=== PATIENT | female | born 1960 | race Caucasian/White ===

== ENCOUNTER 2018-01-27 05:44 | Inpatient (IN) | payer BC ==
[~2018-01-27] VITALS: Ht 172.7 cm; Wt 76.9 kg
[2018-01-27 06:01] LABS: HCG,QUAL RESULT NEGATIVE (NEGATIVE)
[2018-01-27] MEDS ORDERED: SIMV10TA2 PO (06:47)
[2018-01-27] MEDS ORDERED: FERR140T PO (06:47)
[2018-01-27] MEDS ORDERED: CEFAZOLIN SOD 1 GM/ ISO 50 ML PREMIX IV ONE (07:00)
[2018-01-27] MEDS ORDERED: DIPHENHYDRAMINE INJ 50 MG/ML VIAL IVP PRN (09:15)
[2018-01-27] MEDS ORDERED: ONDANSETRON HCL 4 MG/2 ML VIAL IVP PRN ×2 (09:15→09:45)
[2018-01-27] MEDS ORDERED: NALOXONE HCL 0.4 MG/ML AMP (NARCAN) IVP PRN (09:15)
[2018-01-27] MEDS ORDERED: FENT2mCg/mL-ROPIVA0.2%/NS EPID 150 ML EP SCH (09:15)
[2018-01-27] MEDS ORDERED: fentaNYL CITRATE/PF 100 MCG/2 ML AMP IVP PRN ×2 (09:15)
[2018-01-27] MEDS ORDERED: NALBUPHINE HCL 10 MG/ML AMP IVP PRN (09:15)
[2018-01-27] MEDS ORDERED: KETOROLAC TROMETHAMINE 30 MG VIAL IVP PRN (09:15)
[2018-01-27] MEDS ORDERED: FENT2mCg/mL-ROPIVA0.2%/NS EPID 100 ML EP SCH (09:24)
[2018-01-27] MEDS ORDERED: MIDAZOLAM HCL 5 MG/ML VIAL (VERSED) IV ONE (09:50)
[2018-01-27] MEDS ORDERED: fentaNYL CITRATE/PF 100 MCG/2 ML AMP ONE (09:50)
[2018-01-27] MEDS ORDERED: LR 1,000 ML IV.SOLN IV ONE (09:50)
[2018-01-27] MEDS ORDERED: NEOSTIGMINE METHYLSULFATE 1 MG/ML, 10 ML VIAL ONE (09:50)
[2018-01-27] MEDS ORDERED: GLYCOPYRROLATE 0.2 MG/ML VIAL ONE ×2 (09:50→10:29)
[2018-01-27] MEDS ORDERED: CEFAZOLIN 2 GM IVPB PREMIX 50 ML IV ONE (09:50)
[2018-01-27] MEDS ORDERED: ROCURONIUM BROMIDE 10 MG/ML (ZEMURON) ONE (09:50)
[2018-01-27] MEDS ORDERED: VASOPRESSIN 20 UNITS/ML VIAL IV ONE (09:50)
[2018-01-27] MEDS ORDERED: NS 100 ML BAG ONE (09:50)
[2018-01-27] MEDS ORDERED: PROPOFOL 200MG/ 20ML VIAL (DIPRIVAN) IV ONE (09:50)
[2018-01-27] MEDS ORDERED: SEVOFLURANE 15 MIN GAS INH ONE (09:50)
[2018-01-27] MEDS ORDERED: ONDANSETRON HCL 4 MG/2 ML VIAL ONE (10:00)
[2018-01-27] MEDS ORDERED: PROMETHAZINE HCL 25 MG/ML AMP ONE (13:14)
[2018-01-27] MEDS ORDERED: PROMETHAZINE HCL 25 MG/ML AMP IM ONE (13:15)
[2018-01-27] MEDS ORDERED: ALPRAZolam 0.25 MG TABLET PO PRN (14:45)
[2018-01-27] MEDS: LR 1,000 ML IV SCH ×2 (17:38→23:50)
[2018-01-27] MEDS ORDERED: ROPIVACAINE 0.2% 100 ML ONE (18:39)
[2018-01-27] MEDS: CEFAZOLIN 1 GM IVPB PREMIX 50 ML IV SCH (19:02)
[2018-01-27] MEDS ORDERED: TEMAZEPAM 15 MG CAPSULE PO PRN (21:00)
[2018-01-28] MEDS: LR 1,000 ML IV SCH ×3 (01:38→17:38)
[2018-01-28] MEDS ORDERED: ROPIVACAINE 0.2% 0 ML ONE (02:53)
[2018-01-28] MEDS: CEFAZOLIN 1 GM IVPB PREMIX 50 ML IV SCH ×3 (03:00→18:39)
[2018-01-28] MEDS: SENNOSIDES/DOCUSATE SODIUM 1 TAB TABLET(SENOKOT-S) PO SCH ×2 (03:00→20:21)
[2018-01-28] MEDS: KETOROLAC TROMETHAMINE 30 MG VIAL IM SCH ×4 (06:00→18:00)
[2018-01-28 06:37] LABS: EOSINOPHILS % (AUTO) 0.1 % (0.0-4.0); HEMOGLOBIN 8.1 g/dL (12.0-16.0)
[2018-01-28] MEDS: OXYCODONE/ACETAMINOPHEN 5-325 TABLET PO PRN ×2 (07:02→23:29)
[2018-01-28 07:16] LABS: BASOPHILS % (AUTO) 0.2 % (0.0-2.0); HEMATOCRIT 24.7 % (36-48); LYMPHOCYTES # (AUTO) 1.4 K/uL (1.0-5.5); LYMPHOCYTES % (AUTO) 10.8 % (20.5-51.5); MEAN CORPUSCULAR HEMOGLOBIN 28 pg (27-31); MEAN CORPUSCULAR HGB CONC 33 % (32-36); MEAN CORPUSCULAR VOLUME 84 fL (79.0-98.0); MONOCYTES % (AUTO) 8.3 % (1.7-9.3); NEUTROPHILS # (AUTO) 10.2 K/uL (1.8-7.7); NEUTROPHILS % (AUTO) 80.6 % (40.0-70.0); PLATELET COUNT (AUTO) 212 K/uL (130-430); RED BLOOD CELL COUNT(AUTO) 2.94 MIL/uL (4.2-6.2); RED CELL DISTRIBUTION WIDTH 15.3 % (9.0-15.0); WHITE BLOOD COUNT (AUTO) 12.6 K/uL (4.8-10.8)
[2018-01-28] MEDS ORDERED: MEPERIDINE HCL/PF 100 MG/ML AMP IM ONE (07:42)
[2018-01-28] MEDS ORDERED: PROMETHAZINE HCL 25 MG/ML AMP ONE (07:42)
[2018-01-28] MEDS ORDERED: MEPERIDINE HCL/PF 100 MG/ML AMP ONE (07:42)
[2018-01-28] MEDS ORDERED: PROMETHAZINE HCL 25 MG/ML AMP IM ONE (07:42)
[2018-01-28] MEDS: SIMETHICONE 80 MG TAB.CHEW PO SCH ×4 (07:55→21:00)
[2018-01-28] MEDS ORDERED: BISACODYL 10 MG/SUPPOSITORY RC SCH (09:00)
[2018-01-28] MEDS ORDERED: ONDANSETRON HCL 4 MG/2 ML VIAL IVP PRN (16:45)
[2018-01-28 16:52] VITALS: BP_SYST 125
[2018-01-28 19:00] VITALS: BP_SYST 125
[2018-01-28 20:00] VITALS: BP_SYST 110
[2018-01-29] MEDS: HYDROmorphone 2 MG/ML VIAL IVP PRN ×2 (00:04→09:01)
[2018-01-29] MEDS: LR 1,000 ML IV SCH ×4 (00:09→21:09)
[2018-01-29 03:18] VITALS: BP_SYST 141
[2018-01-29] MEDS: CEFAZOLIN 1 GM IVPB PREMIX 50 ML IV SCH ×3 (03:24→19:00)
[2018-01-29 08:04] VITALS: BP_SYST 113
[2018-01-29] MEDS: SIMETHICONE 80 MG TAB.CHEW PO SCH ×4 (09:01→21:08)
[2018-01-29 12:00] VITALS: BP_SYST 122
[2018-01-29] MEDS: OXYCODONE/ACETAMINOPHEN 5-325 TABLET PO PRN ×4 (12:01→23:03)
[2018-01-29 16:00] VITALS: BP_SYST 125
[2018-01-29] MEDS ORDERED: BISACODYL 10 MG/SUPPOSITORY RC ONE (16:00)
[2018-01-29] MEDS ORDERED: OXYCODONE/ACETAMINOPHEN 5-325 TABLET PO ONE ×2 (16:00→16:30)
[2018-01-29] MEDS ORDERED: OXYCODONE/ACETAMINOPHEN 5-325 TABLET ONE (16:26)
[2018-01-29] MEDS ORDERED: ceFAZolin SODIUM 1 GM VIAL ONE (20:23)
[2018-01-29 20:31] VITALS: BP_SYST 145
[2018-01-29] MEDS: SENNOSIDES/DOCUSATE SODIUM 1 TAB TABLET(SENOKOT-S) PO SCH (21:00)
[2018-01-30 00:15] VITALS: BP_SYST 109
[2018-01-30] MEDS: OXYCODONE/ACETAMINOPHEN 5-325 TABLET PO PRN ×4 (03:01→17:34)
[2018-01-30] MEDS: CEFAZOLIN 1 GM IVPB PREMIX 50 ML IV SCH ×2 (03:02→11:07)
[2018-01-30 08:50] VITALS: BP_SYST 131
[2018-01-30] MEDS: SIMETHICONE 80 MG TAB.CHEW PO SCH ×3 (09:09→17:16)
[2018-01-30 11:21] VITALS: BP_SYST 117
[2018-01-30] MEDS ORDERED: BISACODYL 10 MG/SUPPOSITORY RC ONE (16:30)
[2018-01-30 18:16] VITALS: BP_SYST 117
== END 2018-01-30 19:45 | disposition home or self-care (01) | DRG 743 ==
LOC: SMU 05:44 → EDSTATUS 07:30 → SPU 12:41 → SMU 01-28 15:35
PROVIDERS: ADMIT Specialist; ATTEND Specialist
PROC: 0UT70ZZ Resection of Bilateral Fallopian Tubes, Open Approach (ICD-10-PCS; 2018-01-27)
PROC: 0UT10ZZ Resection of Left Ovary, Open Approach (ICD-10-PCS; 2018-01-27)
PROC: 0WJG0ZZ Inspection of Peritoneal Cavity, Open Approach (ICD-10-PCS; 2018-01-27)
PROC: 0UT90ZZ Resection of Uterus, Open Approach (ICD-10-PCS; principal; 2018-01-27 07:30)
DX: D25.9 Leiomyoma of uterus, unspecified (principal); D64.9 Anemia, unspecified; D27.1 Benign neoplasm of left ovary; N93.8 Other specified abnormal uterine and vaginal bleeding
CPT/HCPCS: 36415; 84703; 85025; 87081; 88305; 88307; J0690; J1170; J1885; J2175; J2250; J2405; J2550; J2704; J2710; J2795; J3010; J3490; J7120